=== PATIENT | male | born 2000 | race Caucasian/White ===

== ENCOUNTER 2025-08-29 10:30 | Emergency (ER) | payer OTHER, SELFPAY ==
[2025-08-29] VITALS (10 sets, daily range): BP systolic 138–164; BP diastolic 87–96; PULSE 100–107; RESP 16–20; TEMP 37.2; O2SAT 96–99
--- NOTE | 2025-08-29 10:46 | ED_ITS ---
HPI - Wound/Laceration General Chief Complaint: Recheck/Abnormal Lab/Rx Stated Complaint: needle stick injury Time Seen by Provider: 08/29/25 10:42 Source: patient Mode of arrival: ambulatory Limitations: no limitations History of Present Illness HPI narrative: This is a 25 year old male that presents to the ER for a needlestick injury. Reports he works at [employer]. Was throwing away a needle after giving a vaccine and accidentally was stuck in the thumb with a different needle in the sharps container. Reports injury to the right thumb. Reports the area barely bled. He immediately washed the area with soap and water. Review of Systems Review of Systems: All systems reviewed & are unremarkable except as noted in HPI and below Exam Narrative: GENERAL: Well-appearing, well-nourished, and in no acute distress. HEAD: Normocephalic, atraumatic. EYES: EOMI. EXTREMITIES: Normal range of motion. No edema. No visible injury SKIN: Warm, dry, no rash. NEURO: No focal deficits. Alert and oriented x3. PSYCH: Normal mood and affect Course Vital Signs Vital signs: Vital Signs Pulse Rate 107 H 08/29/25 10:35 Respiratory Rate 16 08/29/25 10:35 Blood Pressure 156/96 H 08/29/25 10:35 Pulse Oximetry 99 08/29/25 10:35 Oxygen Delivery Room Air 08/29/25 10:35 Pulse Rate 107 H 08/29/25 10:35 Respiratory Rate 16 08/29/25 10:35 Blood Pressure 148/93 H 08/29/25 11:16 Pulse Oximetry 97 08/29/25 12:15 Oxygen Delivery Room Air 08/29/25 10:35 MDM - Wound/Laceration MDM Narrative Medical decision making narrative: Patient presents to the ER for needlestick injury. No obvious injury on exam. Reports cleaning the area right after. Needlestick profile sent. Patient intructed to have continued follow up with his PCP Lab Data Labs: Lab Results 08/29/25 Range/Units 11:13 Hep Bs Antibody Pending Hepatitis C Ab Screen Negative (Negative) HIV 1&2 Ab/P24 Ag 4thGn Negative (Negative) Critical Care Time Critical Care Time Critical Care Time: No Discharge Plan Discharge Clinical Impression: Needlestick injury accident Patient Disposition: Home Condition: Stable Instructions: Needle Stick Injuries (ED) Additional Instructions: Your hepatitis and HIV screens are negative here Follow up with your primary care doctor for further management Patient Language: Yoruba Follow-up/Referrals: PHYSICIAN NOT ON STAFF,NONSTAFF [Non-Staff]
--- OUTSIDE RECORDS SUMMARY | 2025-08-29 11:45 | XMS_ITS | Patient Health Record ---
Author Organization [facility] des[facility] Address [address] [place] [address] Care Team Providers Care Education Site Manager Name Role Phone Dieudonne Espinal Primary Care Provider Allergies Allergen (clinical drug ingredient) Drug/Non Drug Allergy documented on EMR Reaction Allergy Type Onset Date Status Penicillin G Benzathine Unknown Drug Allergy Active Reason For Referral No Information Immunizations Vaccine Route Administration Date Status Comme nts Hep B, adult dosage IM Intramuscular 06/14/2024 Administer ed Tdap IM Intramuscular 06/14/2024 Administered Social History Tobacco Use: Social History Observation Description Date Details (start date - stop date) Never Smoker NA - NA Tobacco Use/Smoking Question Answer Notes Tobacco use: nonsmoker Alcohol Screen (Audit-C) Question Answer Notes Did you have a drink contain ing alcohol in the past year? Yes How often did you have 6 or more drinks on one occasion in the past year? Less than monthly (1 point) How many drinks did you have on a typical day when you were drinking in the past year? 3 or 4 drinks (1 point) How often did you have a dri nk containing alcohol in the past year? 2 to 4 times a month (2 points) Tobacco Control (Standard) Question Answer Notes Tobacco use: Nonsmoker Plan Of Treatment No Information Insurance Providers Payer Name Payer Address Payer Phone Subscriber Number Group Number Insured Name Patient Relationship to Insured Coverage Start Date Coverage End Date [employer] Open Acess [address] [place] [id number] Zackary Pacheco Self - patient is the insured Medical (General) History Surgical History Surgery Date(Month/Year) wisdom teeth removal 2017 Left middle finger fx repair; pins remov ed 04/20/24 Deviated septum repair
[2025-08-29 12:24] LABS: HIV 1/2 Ab P24 Ag Result Negative (Negative)
[2025-08-29 12:34] LABS: Hepatitis B Surface Anti Res Positive
== END 2025-08-29 12:44 | disposition home or self-care (01) ==
PROVIDERS: Emergency Provider Physician Assistant
DX: S61.031A Puncture wound without foreign body of right thumb without damage to nail, initial encounter (principal); W46.1XXA Contact with contaminated hypodermic needle, initial encounter; Z77.21 Contact with and (suspected) exposure to potentially hazardous body fluids; Y92.512 Supermarket, store or market as the place of occurrence of the external cause; Y99.0 Civilian activity done for income or pay; Z20.6 Contact with and (suspected) exposure to human immunodeficiency virus [HIV]
CPT/HCPCS: 36415; 86703; 86706; 86803; 99283; G0432